=== PATIENT | male | born 1970 | race African-American/Black ===

== ENCOUNTER 2020-10-09 14:33 | Emergency (ER) | payer SELFPAY ==
--- NOTE | ~2020-10-09 | CT_ITS ---
EXAMINATION: CTA chest PE protocol DATE: 10/09/2020 16:20 INDICATION: Shortness of breath. Left-sided chest pain, radiating to neck. Left arm tingling for 3 da ys. TECHNIQUE: Computed tomography angiography (CTA) of the chest was performed with 100 mL Omnipaque-350 intravenous contrast timed to evaluate the pulmonary arteries. Coronal maximum intensity projection 3D-reconstructions were created by the technologist. Automated exposure control and iterative reconst ruction technique were employed. Exam dose: 363.96 mGy-cm total exam DLP. COMPARISON: 10/09/2020 portable AP chest FINDINGS: There is diagnostic contrast enhancement of the pulmonary arteries and no evidence of pulmo nary embolism. No thoracic aortic aneurysm or dissection. Normal heart size. No pericardial or pleural effusion. No pulmonary infiltrate or consolidation or pulmonary mass lesion. Included upper abdominal structures are unremarkable. No suspicious osteolytic or osteoblastic lesions are noted. IMPRESSION: No evidence of pulmonary embolus Reviewed, dictated and finalized at [facility]. Reviewed, dictated and finalized at [facility]. RITY INTELLIGENCE ANALYST
--- NOTE | ~2020-10-09 | XR_ITS ---
EXAMINATION: XR chest 1V portable DATE: 10/09/2020 15:27 INDICATION: Left chest pain. TECHNIQUE: A single frontal view of the chest was obtained. COMPARISON: None. FINDINGS: The chest demonstrates clear lungs without pneumonia, pleural effusion, or pneumothorax. Th e heart size is normal. IMPRESSION: 1. No acute cardiopulmonary disease. Reviewed, dictated and finalized at [facility]. [employer]
[2020-10-09 14:43] VITALS: BP 169/104; PULSE 73; RESP 18; O2SAT 100
[2020-10-09 14:56] VITALS: PULSE 76
--- NOTE | 2020-10-09 15:04 | ECG_ITS ---
Measurements Intervals [place] Rate: 76 P: 3 ID: 160 QRS: 64 QRSD: 94 T: 29 QT: 374 QTc: 421 Interpretive Statements SINUS RHYTHM RSR' IN V1 OR V2, CONSIDER RIGHT VENTRICULAR HYPERTROPHY OR RIGHT VCD NONSPECIFIC ST ELEVATION IN DIFFUSE LEADS BORDERLINE ECG Electronically Signed On 10-09-2020 15:19:32 [employer] by Shankar Ruby D.O.
[2020-10-09 15:09] LABS: Basophils Percent Auto 0.3 % (0.2-1.2); Eosinophils Percent Auto 0.3 % (0-4.4); Hematocrit 39.4 % (42.0-52.0); Immature Granulocyte Absolute 0.03 K/mm3 (0.00-0.031); Immature Granulocyte Percent A 0.5 % (0-0.5); Lymphocytes Absolute Auto 1.61 K/mm3 (0.9-3.2); Lymphocytes Percent Auto 24.9 % (18.3-44.2); Mean Corpuscular Hemoglobin 29.3 pg (26-34); Mean Corpuscular Volume 88.7 fl (80-100); Mean Platelet Volume 8.4 fl (7.4-10.4); Monocytes Absolute Auto 0.8 K/mm3 (0.1-0.6); Monocytes Percent Auto 11.8 % (2.6-8.5); Neutrophils Percent Auto 62.2 % (45.5-73.1); Platelet Count Result 191 k/mm3 (150-375); Red Blood Count 4.44 M/mm3 (4.6-6.20); Red Cell Distribution Width 15.1 % (11.5-14.5); White Blood Count 6.5 K/mm3 (4.5-10.0)
--- NOTE | 2020-10-09 15:09 | ED.ABDPAIN ---
HPI - Abdominal Pain General Chief Complaint: Chest Pain <DIEGO Gunter Last Filed: 10/09/20 17:08> Stated Complaint: left arm discomfort <DIEGO Gunter Lalit Filed: 10/09/20 17:08> Time Seen by Provider: 10/09/20 14:38 <DIEGO Gunter Last Filed: 10/09/20 17:08> Source: patient <DIEGO Gunter Last Filed: 10/09/20 17:08> Mode of arrival: ambulatory <DIEGO Gunter Last Filed: 10/09/20 17:08> Limitations: no limitations <DIEGO Gunter Last Filed: 10/09/20 17:08> History of Present Illness HPI narrative: Patient is a 50-year-old male who presents with 2 days duration of left-sided chest pressure patient notes that this has been constant for 2 days nothing is made it better or worse patient he had a similar occurrence when he was 42 was evaluated and told that it was not cardiac in nature. Patient denies recent illness or other complaints presents in no distress denies radiation of pain <DIEGO Gunter Last Filed: 10/09/20 17:08> Related Data Allergies/Adverse Reactions: Allergies Allergy/AdvReac Type Severity Reaction Status Date / Time No Known Allergies Allergy Unverified 10/09/20 14:57 <DIEGO Gunter Last Filed: 10/09/20 17:08> Review of Systems Review of Systems: All systems reviewed & are unremarkable except as noted in HPI and below <DIEGO Gunter Last Filed: 10/09/20 17:08> Exam Narrative: Exam Narrative: GENERAL: Well-appearing, well-nourished, and in no acute distress. HEAD: Normocephalic, atraumatic. EYES: PERRLA and EOMI. ENT: Nares clear, no rhinorrhea or epistaxis. Mucous membranes moist. CHEST: Clear to auscultation. No respiratory distress. No wheezes rales or rhonchi HEART: Regular rate and rhythm. No murmur heard. Normal peripheral pulses. ABDOMEN: Soft, nontender, nondistended EXTREMITIES: Normal range of motion. No edema. SKIN: Warm, dry, no rash. NEURO: No focal deficits. Alert and oriented x3. Cranial nerves II through XII grossly intact PSYCH: Normal mood and affect. <Addison Morillo PA-C - Last Filed: 10/09/20 17:08> Course Course Emergency Course: Patient evaluated in the emergency department with no high risk changes given that he has had constant symptoms for 2 days it is felt that the patient can be sent home given that he is low risk given his cardiac risk stratification patient agrees with this plan is hemodynamically stable with ABCs intact <Addison Morillo PA-C - Last Filed: 10/09/20 17:08> Vital Signs Vital signs: Vital Signs Pulse Rate 73 10/09/20 14:43 Respiratory Rate 18 10/09/20 14:43 Blood Pressure 169/104 H 10/09/20 14:43 Pulse Oximetry 100 10/09/20 14:43 Pulse Rate 88 10/09/20 17:56 Respiratory Rate 20 10/09/20 17:56 Blood Pressure 164/106 H 10/09/20 17:56 Pulse Oximetry 98 10/09/20 17:56 <Addison Morillo PA-C - Last Filed: 10/09/20 17:08> Vital Signs Pulse Rate 73 10/09/20 14:43 Respiratory Rate 18 10/09/20 14:43 Blood Pressure 169/104 H 10/09/20 14:43 Pulse Oximetry 100 10/09/20 14:43 Pulse Rate 88 10/09/20 17:56 Respiratory Rate 20 10/09/20 17:56 Blood Pressure 164/106 H 10/09/20 17:56 Pulse Oximetry 98 10/09/20 17:56 <Kylee Best MD - Last Filed: 10/09/20 19:34> MDM - Abdominal Pain MDM Narrative Medical decision making narrative: Patients EKGs and labs are without significant high risk changes. Cardiac risk factors were reviewed. Patient is felt likely to be low risk for ACS and reasonable for further risk stratification testing as an outpatient. Pain was not sudden or maximal in onset without tearing or ripping. quality. No other signs or symptoms to suggest aortic dissection. A low-risk Wells criteria is noted. PE is felt to be unlikely. No pneumonia or URI symptoms were seen on evaluation today. Patient is felt to b reaso
[2020-10-09 15:20] LABS: Alanine Aminotransferase 76 U/L (4-50); Albumin Level 4.6 g/dL (3.5-5.1); Alkaline Phosphatase 63 U/L (38-126); Anion Gap 9 mmol/L (8-16); Aspartate Amino Transferase 129 U/L (17-59); Blood Urea Nitrogen 8 mg/dL (9-20); Calcium 9.8 mg/dL (8.4-10.2); Carbon Dioxide 28 mmol/L (22-30); Chloride 98 mmol/L (98-107); Estimated CRCL calculation 95 ml/min; Estimated Glomerular Filt Rate > 60; Glucose 115 mg/dL (75-110); Lipase 118 U/L (23-300); Potassium 3.6 mmol/L (3.4-5.0); Sodium 135 mmol/L (137-145)
[2020-10-09 15:30] VITALS: BP 157/93; PULSE 72; RESP 22; O2SAT 100
[2020-10-09 15:32] LABS: Prothrombin Time 13.6 Seconds (11.1-14.7); Troponin I < 0.012 ng/mL (0.000-0.034)
[2020-10-09 15:33] LABS: Partial Thromboplastin Time 24.5 SECONDS (22.3-36.8)
[2020-10-09 15:35] LABS: D Dimer 0.93 ug/mL (<0.48)
[2020-10-09 16:00] VITALS: BP 147/109; PULSE 82; RESP 17; O2SAT 99
[2020-10-09 17:56] VITALS: BP 164/106; PULSE 88; RESP 20; O2SAT 98
[2020-10-09 18:19] LABS: Troponin I < 0.012 ng/mL (0.000-0.034)
== END 2020-10-09 17:56 | disposition home or self-care (01) ==
PROVIDERS: Emergency Medicine Emergency Medical Services; Emergency Provider Emergency Medicine
DX: R07.89 Other chest pain (principal)
CPT/HCPCS: 36415; 71045; 71275; 80053; 83690; 84484; 85025; 85380; 85610; 85730; 93005; 99284; Q9967

== ENCOUNTER 2023-01-12 09:13 | Outpatient (CLI) | payer OTHER, SELFPAY ==
--- NOTE | ~2023-01-12 | CT_ITS ---
Non-contrast CT scan of the Abdomen and Pelvis Clinical indication: Microscopic hematuria Technique: 2.5 mm axial scans were obtained through the abdomen and pelvis without intravenous or or al contrast. Dose reduction technique was used on this scan by utilizing automated exposure control a nd iterative reconstruction technique. The dose-length product (DLP) was 432.69 mGy-cm. Findings: Images through the lung bases reveal no abnormalities. There is no evidence of renal or ureteral calculi. The kidneys and the ureters are nondilated. The liver, spleen, pancreas, gallbladder, and adrenals appear normal. There is no aortic aneurysm. There is no evidence of bowel obstruction. Normal appendix. Images through the pelvis were performed. There is no evidence of ascites or lymphadenopathy. Suggest ion of urinary bladder wall thickening. No pelvic mass evident. 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 Impression: Suspected urinary bladder wall thickening versus underdistention. Correlate for cystitis. Bilateral L5 pars interarticularis defects. Reviewed, dictated and finalized at [facility]. Impression: Suspected urinary bladder wall thickening versus underdistention. Correlate for cystitis. Bilateral L5 pars interarticularis defects.
== END 2023-01-12 09:14 | disposition home or self-care (01) ==
PROVIDERS: Visit Provider Internal Medicine Infectious Disease
DX: R31.29 Other microscopic hematuria (principal)
CPT/HCPCS: 74176

== ENCOUNTER 2024-11-18 09:45 | Outpatient (CLI) | payer BC, SELFPAY ==
--- NOTE | ~2024-11-18 | US_ITS ---
EXAM: RENAL ULTRASOUND HISTORY: Microscopic hematuria COMPARISON: Reference is made to a CT examination of the abdomen and pelvis dated 01/12/2023 FINDINGS: RIGHT KIDNEY: 12.1 x 6.0 x 6.7 cm. The parenchyma of the right kidney is unremarkable in echogenicity. No hydronephrosis or bulky renal calculi. LEFT KIDNEY: 12.3 x 6.5 x 4.8 cm No hydronephrosis or renal calculi. The parenchyma of the left kidney is unremarkable in echogenicity. BLADDER: The bladder is unremarkable without thickened manuel or asymmetry within the manuel. IMPRESSION: Unremarkable sonographic evaluation of the bilateral kidneys and bladder, as detailed above. If clinical suspicion persists, cross-sectional imaging (either with CT or MRI) is recommended for fu rther evaluation. Reviewed, dictated and finalized at [facility]. [employer] APPOINTMENT CLERK IMPRESSION: Unremarkable sonographic evaluation of the bilateral kidneys and bladder, as de tailed above. If clinical suspicion persists, cross-sectional imaging (either with CT or MRI) is recommended for further evaluation.
== END 2024-11-18 09:46 | disposition home or self-care (01) ==
LOC: MICIMG 09:49
PROVIDERS: PCP Internal Medicine Infectious Disease; Visit Provider Internal Medicine Infectious Disease
DX: R31.29 Other microscopic hematuria (principal)
CPT/HCPCS: 76775